=== PATIENT | female | born 1980 | race Hispanic/Latino ===

== ENCOUNTER 2022-01-03 23:14 | Emergency (ER) | payer OTHER, SELFPAY ==
[2022-01-03] MEDS ORDERED: Diazepam 5 MG TAB PO ONE (23:15)
[2022-01-03] MEDS ORDERED: Dexamethasone 10 MG/ML VIAL FS ONE (23:15)
[2022-01-03] MEDS ORDERED: Ketorolac Tromethamine 30 MG/ML VIAL IVP ONE (23:15)
== END 2022-01-04 00:13 | disposition home or self-care (01) ==
LOC: BURERS 23:14
DX: M54.50 Low back pain, unspecified (principal); X50.0XXA Overexertion from strenuous movement or load, initial encounter
CPT/HCPCS: 96372; 99282; J1100; J1885

== ENCOUNTER 2022-05-04 19:18 | Emergency (ER) | payer SELFPAY ==
[2022-05-04] MEDS ORDERED: Ibuprofen 200 MG TAB ONE ×2 (19:43→19:47)
[2022-05-04] MEDS ORDERED: Acetaminophen 500 MG TAB ONE (19:43)
== END 2022-05-04 19:49 | disposition home or self-care (01) ==
LOC: BURERS 19:18
DX: T63.301A Toxic effect of unspecified spider venom, accidental (unintentional), initial encounter (principal)
CPT/HCPCS: 99282